=== PATIENT | female | born 1990 ===

== ENCOUNTER 2021-05-08 05:35 | Inpatient (IN) | payer OTHER ==
[2021-05-08] MEDS ORDERED: Tranexamic Acid 1,000 MG in Sodium Chloride 0.9% 100 ML IV PRN (06:13)
[2021-05-08] MEDS ORDERED: Water For Irrigation,Sterile 1,000 ML Container IRR PRN (06:13)
[2021-05-08] MEDS ORDERED: Ondansetron 4 MG/2 ML SDV IVPUSH PRN (06:13)
[2021-05-08] MEDS ORDERED: Sodium Chloride 0.9% 20 ML SDV IV PRN (06:13)
[2021-05-08] MEDS ORDERED: Lidocaine 1% 50 ML MDV INJECT PRN (06:13)
[2021-05-08] MEDS ORDERED: Butorphanol 1 MG/ML SDV IVPUSH PRN (06:13)
[2021-05-08] MEDS ORDERED: Sodium Chloride 0.9% 10 ML Syringe FLUSH PRN (06:13)
[2021-05-08] MEDS ORDERED: Carboprost Tromethamine 250 MCG/1 ML Amp IM PRN (06:13)
[2021-05-08] MEDS ORDERED: Misoprostol 200 MCG Tab PO PRN (06:13)
[2021-05-08] MEDS ORDERED: Methylergonovine 0.2 MG/1 ML Amp IM PRN (06:13)
[2021-05-08] MEDS ORDERED: Sodium Chloride 0.9% 2.5 ML Syringe FLUSH PRN (06:13)
[2021-05-08] MEDS ORDERED: Oxytocin/0.9 % Sodium Chloride 30 UNIT/500 ML BAG IV SCH (06:15)
[2021-05-08] MEDS: Lactated Ringers 1,000 ML IV SCH ×3 (07:30→13:48)
[2021-05-08] MEDS ORDERED: Bupivacaine 0.25% 10 ML SDV ONE (08:19)
[2021-05-08] MEDS ORDERED: Ropivacaine 100 ML ONE (08:19)
[2021-05-08 08:30] LABS: BLOOD UREA NITROGEN,BUN 10 mg/dL (7.0-18.0); CARBON DIOXIDE,CO2 19.9 mmol/L (21.0-32.0); CHLORIDE,CL 100 mmol/L (98-107); GLUCOSE RANDOM 137 mg/dL (74-106); POTASSIUM,K 4.3 mmol/L (3.5-5.1); SODIUM,NA 135 mmol/L (136-145)
[2021-05-08] MEDS ORDERED: ePHEDrine 50 MG/ML SDV IVPUSH PRN ×2 (09:05)
[2021-05-08] MEDS ORDERED: Ropivacaine 200 MG in Premix Bag 1 BAG EPIDUR SCH (09:15)
[2021-05-08] MEDS ORDERED: Labetalol 100 MG/20 ML MDV IVPUSH ONE (09:55)
[2021-05-08] MEDS ORDERED: Ibuprofen 400 MG Tab PO PRN (22:03)
[2021-05-08] MEDS ORDERED: Bisacodyl 10 MG Supp RECTAL PRN (22:03)
[2021-05-08] MEDS ORDERED: Lanolin 100% Cream 7 GM Tube TOP PRN (22:03)
[2021-05-08] MEDS ORDERED: oxyCODONE 5 MG Tab PO PRN (22:03)
[2021-05-08] MEDS ORDERED: Benzocaine/Menthol 20%-0.5% Spray 78 GM Cannister TOP PRN (22:03)
[2021-05-08] MEDS ORDERED: Witch Hazel Medicated Pads 40/Jar TOP PRN (22:03)
[2021-05-08] MEDS ORDERED: Acetaminophen 500 MG Tab PO PRN (22:03)
[2021-05-08] MEDS: Ibuprofen 800 MG Tab PO PRN (23:31)
[2021-05-09] MEDS: Acetaminophen 500 MG Tab PO PRN ×2 (04:01→13:21)
[2021-05-09 06:53] LABS: BLOOD UREA NITROGEN,BUN 11 mg/dL (7.0-18.0); CHLORIDE,CL 106 mmol/L (98-107); GLUCOSE RANDOM 80 mg/dL (74-106); SODIUM,NA 140 mmol/L (136-145)
[2021-05-09] MEDS: Docusate Sodium 100 MG Cap PO PRN (13:20)
[2021-05-09] MEDS: Ibuprofen 800 MG Tab PO PRN (15:26)
[2021-05-10] MEDS: Docusate Sodium 100 MG Cap PO PRN (09:21)
== END 2021-05-10 20:37 | disposition home or self-care (01) | DRG 807 ==
LOC: MW.OBCHECK 05:35 → MW.OB 05:37 → MW.OBCHECK 06:09 → OBSVTOIN 21:15 → MW.OB 05-09 00:17
PROVIDERS: ADMIT Obstetrics & Gynecology; ATTEND Obstetrics & Gynecology
PROC: 10D07Z6 Extraction of Products of Conception, Vacuum, Via Natural or Artificial Opening (ICD-10-PCS; principal; 2021-05-08)
PROC: 0KQM0ZZ Repair Perineum Muscle, Open Approach (ICD-10-PCS; 2021-05-08)
PROC: 3E0R3BZ Introduction of Anesthetic Agent into Spinal Canal, Percutaneous Approach (ICD-10-PCS; 2021-05-08)
PROC: 00HU33Z Insertion of Infusion Device into Spinal Canal, Percutaneous Approach (ICD-10-PCS; 2021-05-08)
DX: O63.1 Prolonged second stage (of labor) (principal); Z37.0 Single live birth; Z3A.37 37 weeks gestation of pregnancy; O70.1 Second degree perineal laceration during delivery; O69.81X0 Labor and delivery complicated by cord around neck, without compression, not applicable or unspecified; Z20.822 Contact with and (suspected) exposure to COVID-19
CPT/HCPCS: 01967; 36415; 80053; 81003; 82803; 84112; 84550; 85027; 86592; 86850; 86900; 86901; A9270-GY; J2001; J2590; J2795; J3490; J7120; U0002